=== PATIENT | male | born 1960 | race Caucasian/White ===

== ENCOUNTER 2021-03-30 16:26 | Emergency (ER) | payer BC, SELFPAY ==
[2021-03-30 16:34] VITALS: BP 144/78; PULSE 49; RESP 18; TEMP 36.6; O2SAT 100; BMI 26.4
[2021-03-30 16:49] VITALS: BP 119/74; BP 127/76; BP 128/74; PULSE 51; PULSE 52; PULSE 54
[2021-03-30 19:06] VITALS: BP 121/66; PULSE 55; RESP 15; TEMP 36.6; O2SAT 98
--- NOTE | 2021-03-30 19:08 | PC.NURSE ---
Patient reports that dizziness has improved significantly since onset.
--- NOTE | 2021-03-30 19:39 | ED.DIZZY ---
HPI - Dizziness General Chief Complaint: Dizziness Stated Complaint: reaction to covid vaccine - moderna Time Seen by Provider: 03/30/21 19:32 Source: patient and EMS Mode of arrival: Ambulatory Limitations: no limitations History of Present Illness HPI Narrative: Patient complains of lightheadedness and flushing in the body sensation feeling weak about 5 minutes after his 2nd Moderna shot. He had similar event 8 weeks ago on his 1st Moderna COVID shot at the pharmacy. 5 minutes after injection felt lightheaded and weak without any syncope on the 1st episode. Today's vaccination was done here at the clinic because he want to be close to the hospital. Heart rate was 44 wound became symptomatic. Patient states baseline heart rate for him his 50s and 60s. EKG reviewed. Sinus bradycardia 45. However now it is 55. Patient states that took about an hour the 1st time for him to feel better. Today's immunization was at 3:45 p.m.. He is feeling much better now. It is now 7:43 p.m.. He desires discharge home. Orthostatics completed. Was not dizzy. Otherwise no recent illness. No chest pain no palpitations no nausea vomiting diarrhea. No abdominal pain. No altered mental status. Related Data Allergies Allergy/AdvReac Type Severity Reaction Status Date / Time No Known Drug Allergies Allergy Verified 03/30/21 16:34 Review of Systems Review of Systems Narrative: GENERAL: Denies chills, fatigue, malaise, fever, sweats. Did feel weak HEENT: Denies sinus pain, ear pain, sore throat RESPIRATORY: Denies dyspnea, cough CARDIOVASCULAR: Denies chest pain, palpitations GASTROINTESTINAL: Denies nausea, vomiting, abdominal pain : Denies dysuria, frequency, hematuria MUSCULOSKELETAL: denies muscle or bony pain SKIN: Denies rash, skin lesions NEUROLOGIC: Denies weakness, numbness, complaints of dizziness Patient History Medical History Gout, unspecified (03/30/11) Family History Father Cancer Brother Type 1 diabetes Social History Smoking Status: Never smoker Smoking Status: Never smoker alcohol intake frequency: a few times a week Substance Use Type: does not use Exam Narrative Exam Narrative: GENERAL: in no distress, not toxic not dyspneic HEAD: Normocephalic. EYES: Pupils equal round No scleral icterus. No injection no discharge ENT: Mucous membranes moist. NECK: Trachea midline. CARDIOVASCULAR: Regular rate and rhythm without murmurs RESPIRATORY: Clear to auscultation. Breath sounds equal bilaterally. No wheezes, rales, or rhonchi. GASTROINTESTINAL: Abdomen soft, non-tender EXTREMITIES: No gross deformities. BACK: No flank tenderness. NEURO: AOx4. SKIN: Warm and dry PSYCH: Not anxious, is cooperative Initial Vital Signs Initial Vital Signs: Vital Signs Temperature 97.9 F 03/30/21 16:34 Pulse Rate 49 L 03/30/21 16:34 Respiratory Rate 18 03/30/21 16:34 Blood Pressure 144/78 H 03/30/21 16:34 Pulse Oximetry 100 03/30/21 16:34 Course Course Course Narrative: No new issues during course of stay. Orders Ordered: ED Orders 03/30/21 16:40 EKG-12 Lead Stat Reevaluation(s) Reevaluation #1: Reviewed diagnosis with patient. Agrees for treatment plan and follow-up with primary care Time: 19:46 Vital Signs Vital signs: Vital Signs - 8 hr 03/30/21 16:34 03/30/21 16:49 03/30/21 19:06 Temperature 97.9 F 97.9 F Pulse Rate 49 L 55 L Pulse Rate [Orthostatic Lying] 52 L Pulse Rate [Orthostatic Sitting] 51 L Pulse Rate [Orthostatic Standing] 54 L Respiratory Rate 18 15 Blood Pressure 144/78 H 121/66 Blood Pressure [Orthostatic Lying] 119/74 Blood Pressure [Orthostatic Sitting] 127/76 Blood Pressure [Orthostatic Standing] 128/74 Pulse Oximetry 100 98 MDM - Dizziness Differential Diagnosis Differential diagnosis: Likely other (Vasovagal episode) ECG Data Interpretation: Sinus bradycardia rate 45 otherwise normal EKG [facility] Narrative Medical decision making narrative: Appropriate for discharge home. Clinically vasovagal episode. No laboratory studies or imaging indicated. Exact same episode happen with the 1st vaccination. Exam reassuring. EKG reassuring. Has low heart risk factors. return precautions reviewed with patient. Patient desires discharge home Discharge Plan Departure Patient Disposition: Home Clinical Impression: Vasovagal episode after vaccination Instructions: DI for Dizziness-Nonvertigo Activity Restrictions/Additional Instructions: Return if worse if any questions or concerns. Today's event likely due to vasovagal reaction from the vaccination. This is a common reaction from vaccinations or immunizations or blood drawing. See family doctor in a week for recheck. Referrals: Octavio Fox MD [Primary Care Provider] -
== END 2021-03-30 19:47 | disposition home or self-care (01) ==
PROVIDERS: Emergency Provider Emergency Medicine; Family Provider Physician Assistant Medical; PCP Student in an Organized Health Care Education/Training Program
DX: R55 Syncope and collapse (principal); R00.1 Bradycardia, unspecified; T50.B95A Adverse effect of other viral vaccines, initial encounter
CPT/HCPCS: 93005; 99283

== ENCOUNTER → 2021-04-05 15:56 | Outpatient (CLI) | payer BC, SELFPAY ==
[2021-04-05 16:58] LABS: Cholesterol 235 mg/dL (140-199); HDL Cholesterol 51 mg/dL (40-60); LDL Cholesterol Calculated 158 mg/dL (<100); Triglycerides 130 mg/dL (35-150)
[2021-04-05 17:26] LABS: Vitamin D 25 Hydroxy (D3) 31.8 ng/mL (30.0-100.0)
[2021-04-05 17:41] LABS: Prostate Specific Antigen Scrn 0.623 ng/mL (0.1-4.0)
== END ==
PROVIDERS: Family Provider Physician Assistant Medical; PCP Student in an Organized Health Care Education/Training Program; Referring Provider Student in an Organized Health Care Education/Training Program; Visit Provider Student in an Organized Health Care Education/Training Program
DX: Z13.220 Encounter for screening for lipoid disorders (principal); E55.9 Vitamin D deficiency, unspecified; Z12.5 Encounter for screening for malignant neoplasm of prostate
CPT/HCPCS: 36415; 80061; 82306; G0103